=== PATIENT | female | born 1985 | race Caucasian/White ===

== ENCOUNTER 2016-06-01 11:50 | Emergency (ER) | payer OTHER ==
[~2016-06-01 11:50] MED LIST: AURALGAN AS; FLEXERIL PO; FLEXERIL10 MG PO; IBUPROFEN PO; KETOPROFEN PO; LEVAQUIN PO; MEDROL PO; MEDROL4 MG/DOSE- PO; NO MEDICATIONS; ORUDIS75 M1 DOB; PHENERGAN25 M1 PO; PRENATAL VITAMI1 TA3; VICODIN 5/500 T1 TAB PO; VOLTAREN75 MG PO; ZITHROMAX PO
== END 2016-06-01 13:00 | disposition home or self-care (01) ==
LOC: SED 11:50
DX: R22.0 Localized swelling, mass and lump, head (principal); Z98.51 Tubal ligation status
CPT/HCPCS: 99282

== ENCOUNTER 2016-06-06 19:03 | Emergency (ER) | payer OTHER ==
--- NOTE | ~2016-06-06 | CT57 ---
[facility]. [facility] A Service of [facility] & [facility] RADIOLOGY TEXT RESULTS PATIENT: LILA RUCKER LOCATION: SED : 81 UNIT #: [id number] AGE: [address]: Amol Ag MD SEX: F ORDER DR: [id number] [address] [address] [id number] MR#: [id number] Acc #: [id number] NAME: LILA RUCKER : 1985 SEX: F STUDY DATE/TIME: 06/06/2016 20:23 UNIT: SED ROOM: STUDY DESCRIPTION: CT Chest Wo Cont Attending Physician: Amol Ag M.D. Referring Physician: Jake Hidalgo M.D. Ordering Physician: Jake Hidalgo M.D. Primary Care Physician: Radha Hirsch M.D. MEDICAL IMAGING REPORT This report is preliminary unless electronic signature is present. EXAM Chest CT without HISTORY Sharp pain upper left side of breast all day. COMMENT Routine noncontrast chest CT is reviewed. This CT exam was performed with one or more of the following radiation dose reduction techniques: automatic exposure control, adjustment of mA and/or kV according to patient size, and iterative reconstruction. COMPARISON There is a previous chest x-ray from 2015 pending [facility]. FINDINGS There is no pleural effusion. There is no pneumothorax. There is no acute-appearing parenchymal infiltrates. There is mild exaggeration of thoracic kyphosis at lower thoracic spine, probably centered around T11 and I suspect there is some degenerative disc disease focally at T10-11. This should be a chronic finding. None contrast study is less sensitive for adenopathy. There is no obvious axillary adenopathy. Some residual thymic tissue is probably present. If there is concern for breast pathology, correlation with physical examination and mammogram on ultrasound would be recommended. No coronary artery calcifications suspected. Heart size normal. No pericardial effusion. IMPRESSION 1. 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 2. There is no evidence for pneumothorax, acute infiltrate, acute congestive failure, pleural effusion, or pericardial effusion. No STS. [facility] A Service of [facility] & [facility] RADIOLOGY TEXT RESULTS PATIENT: LILA RUCKER LOCATION: SED : [birth year] UNIT #: [id number] AGE: [address]: Amol Ag MD SEX: F ORDER DR: coronary artery calcifications are seen. No suspicious adenopathy is appreciated. Noncontrast study is relatively less sensitive for evaluation for hilar or mediastinal lymphadenopathy and does not evaluate for pulmonary embolism. 3. If there is clinical concern for breast pathology, correlation with physical examination and imaging such as mammography or ultrasound would be indicated. Dictated by... Vanna Márquez M.D. THIS IS AN ELECTRONICALLY VERIFIED REPORT Vanna Márquez M.D. at 06/07/2016 8:51 PM JAGDEEP/thomas TD: 06/07/2016 10:37 JOB #: [id number] MEDICAL IMAGING REPORT Page 1 of 1
--- NOTE | ~2016-06-06 | EKG ---
PATIENT: LILA RUCKER UNIT #: [id number] Ventricular Rate: 78 BPM Atrial Rate: 78 BPM P-R Interval: 152 ms QRS Duration: 74 ms Q-T Interval: 392 ms QTC Calculation(Bezet): 446 ms P [place]: 75 degrees Calculated R [place]: 87 degrees Calculated T [place]: 65 degrees Diagnosis Line: Normal sinus rhythm Diagnosis Line: Possible Left atrial enlargement Diagnosis Line: Borderline ECG Diagnosis Line: When compared with ECG of 12-JUL-2010 23:50, Diagnosis Line: No significant change was found Diagnosis Line: Confirmed by MARK TRACY MD ([id number]) on Diagnosis Line: 06/26/2016 7:10:33 AM INTERPRETING MD: CHIDI
[2016-06-06 19:39] LABS: BASOPHIL% 0.4 % (0-2.5); EOSINOPHIL# 0.1 X10e3 (0-0.7); EOSINOPHIL% 2.2 % (0.0-7.0); HEMATOCRIT 39.9 % (35.0-45.0); HEMOGLOBIN 13.7 gm/dL (12.0-16.0); LYMPHOCYTE# 2.3 X10e3 (1.0-3.5); LYMPHOCYTE% 41.2 % (17.0-45.0); MEAN CELL VOLUME 89.5 FL (83-96); MEAN CORPUSCULAR HEMOGLOBIN 30.7 PG (28-34); MEAN CORPUSCULAR HGB CONC 34.3 g/dL (30-36); MONOCYTE# 0.6 X10e3 (0-1.0); MONOCYTE% 10.2 % (3.0-12.0); NEUTROPHIL# 2.6 X10e3 (1.5-7.1); PLATELET COUNT 193 X10e3 (140-420); RED BLOOD COUNT 4.45 X10e (3.90-5.30); RED CELL DISTRIBUTION WIDTH 12.4 % (11.0-15.5); WHITE BLOOD COUNT 5.6 X10e3 (4.0-10.5)
[2016-06-06 19:41] LABS: DIFF IND NO
[2016-06-06 19:50] LABS: POC - CKMB <1.0 ng/mL (0.0-7.9)
[2016-06-06 19:51] LABS: POC - MYOGLOBIN 19.2 ng/mL (0.0-169.0); POC - TROPONIN <0.05 ng/mL (<=0.05)
[2016-06-06 19:57] LABS: ALBUMIN SERUM 4.1 g/dL (3.5-5.0); BILIRUBIN,TOTAL 0.2 mg/dL (0.2-2.0); CALCIUM SERUM 9.2 mg/dL (8.4-10.2); CREATININE SERUM 0.5 mg/dL (0.6-1.4); GLOM FILT RATE Estimated 127.2 mL/min (>60); POTASSIUM 3.5 mmol/L (3.5-5.1); PROTEIN TOTAL SERUM 6.7 g/dL (6.0-8.3)
== END 2016-06-06 22:59 | disposition home or self-care (01) ==
LOC: SED 19:03
PROVIDERS: Emergency Medicine
DX: M94.0 Chondrocostal junction syndrome [Tietze] (principal); F17.210 Nicotine dependence, cigarettes, uncomplicated
CPT/HCPCS: 71250; 80053; 82553; 83874; 84484; 84703; 85025; 93005; 96361; 96374; 99284; J1885

== ENCOUNTER 2016-07-07 19:49 | Emergency (ER) | payer OTHER | END 2016-07-07 20:25 | disposition home or self-care (01) | LOC: CFTX 19:49 | DX: K08.89 Other specified disorders of teeth and supporting structures (principal); H65.02 Acute serous otitis media, left ear; F17.210 Nicotine dependence, cigarettes, uncomplicated; Z88.8 Allergy status to other drugs, medicaments and biological substances | CPT/HCPCS: 99282; 99283 ==

== ENCOUNTER → 2016-07-16 | Outpatient (CLI) | payer OTHER ==
[~2016-07-16] MED LIST changes: +KEFLEX
--- NOTE | ~2016-07-16 | CT2 ---
[facility] A Service of [facility] & [facility] RADIOLOGY TEXT RESULTS PATIENT: LILA RUCKER LOCATION: CCAT : [birth year] UNIT #: [id number] AGE: [address]: Lissette Osman MD SEX: F ORDER DR: [id number] [facility] [address] [place], [place] [address] [id number] O MR#: [id number] Acc #: [id number] NAME: LILA RUCKER. : 1985 SEX: F STUDY DATE/TIME: 07/16/2016 15:12 UNIT: CCAT ROOM: STUDY DESCRIPTION: CT Abd and Pelv W Cont Attending Physician: Lissette Osman M.D., Ph.D. Referring Physician: Lissette Osman M.D., Ph.D. Ordering Physician: Lissette Osman M.D., Ph.D. Primary Care Physician: Radha Hirsch M.D. MEDICAL IMAGING REPORT This report is preliminary unless electronic signature is present EXAM CT of the abdomen and pelvis with IV contrast media HISTORY 18-pound unexplained weight loss since June 24, nausea, anorexia and lymphadenopathy. Date of examination is 07/16/2016. COMPARISON 02/25/2011 TECHNIQUE Axial imaging of the abdomen and pelvis was obtained with IV contrast media. This CT exam was performed with one or more of the following radiation dose reduction techniques: Automatic exposure control, adjustment of mA and/or kV according to patient size, and iterative reconstruction. FINDINGS Lung bases in this patient are clear. Liver and spleen are normal. The gallbladder is contracted. The pancreas is normal. The adrenal glands are normal and both the right and left kidney are normal. No dilated or thickened loops of bowel are seen in the upper abdomen. There is no significant retroperitoneal lymphadenopathy. The appendix has a normal appearance. There is no evidence of mesenteric or pelvic lymphadenopathy. There are incidental bilateral follicular cysts; the largest is in the right ovary measuring 2.1 cm. There is trace fluid in the cul-de-sac, which can be seen physiologically. Uterus appears unremarkable. No significant lymphadenopathy is identified in the inguinal regions. CONCLUSION 1. Normal CT of the abdomen and pelvis. [facility] A Service of [facility] & [facility] RADIOLOGY TEXT RESULTS PATIENT: LILA RUCKER LOCATION: [facility] : [birth year] UNIT #: [id number] AGE: [address]: Lissette Osman MD SEX: F ORDER DR: Dictated by... Truong Ryder M.D. THIS IS AN ELECTRONICALLY VERIFIED REPORT Truong Ryder M.D. at 07/18/2016 4:41 PM SANDRA/[email or web address] TD: 07/16/2016 20:28 JOB #: [id number] MEDICAL IMAGING REPORT Page 1 of 1 COPY
== END | disposition home or self-care (01) ==
LOC: CCAT 14:26
DX: R59.9 Enlarged lymph nodes, unspecified (principal)
CPT/HCPCS: 74177; Q9967

== ENCOUNTER 2016-08-26 14:45 | Emergency (ER) | payer OTHER ==
[~2016-08-26 14:45] MED LIST changes: -KEFLEX
[2016-08-26] MEDS ORDERED: NO MEDICATIONS (15:10)
[2016-08-26] MEDS ORDERED: KEFLEX (15:11)
[2016-08-26 17:05] LABS: BASOPHIL% 0.5 % (0-2.5); EOSINOPHIL# 0.1 X10e3 (0-0.7); EOSINOPHIL% 0.8 % (0.0-7.0); HEMATOCRIT 43.4 % (35.0-45.0); HEMOGLOBIN 14.9 gm/dL (12.0-16.0); LYMPHOCYTE# 2.3 X10e3 (1.0-3.5); LYMPHOCYTE% 32.9 % (17.0-45.0); MEAN CELL VOLUME 89.3 FL (83-96); MEAN CORPUSCULAR HEMOGLOBIN 30.6 PG (28-34); MEAN CORPUSCULAR HGB CONC 34.3 g/dL (30-36); MEAN PLATELET VOLUME 9.4 FL (6.5-11.5); MONOCYTE# 0.4 X10e3 (0-1.0); MONOCYTE% 5.9 % (3.0-12.0); NEUTROPHIL# 4.2 X10e3 (1.5-7.1); NEUTROPHIL% 59.9 % (40-75); PLATELET COUNT 210 X10e3 (140-420); RED BLOOD COUNT 4.86 X10e (3.90-5.30); RED CELL DISTRIBUTION WIDTH 12.4 % (11.0-15.5)
[2016-08-26 17:06] LABS: DIFF IND NO
[2016-08-26 17:11] LABS: URINE SOURCE CLEAN CATCH
[2016-08-26 17:27] LABS: ALBUMIN SERUM 4.6 g/dL (3.5-5.0); BILIRUBIN,TOTAL 0.5 mg/dL (0.2-2.0); CALCIUM SERUM 9.7 mg/dL (8.4-10.2); CREATININE SERUM 0.6 mg/dL (0.6-1.4); GLOM FILT RATE Estimated 119.8 mL/min (>60); PROTEIN TOTAL SERUM 7.9 g/dL (6.0-8.3)
[2016-08-26 17:30] LABS: URINE APPEARANCE CLEAR; URINE BILIRUBIN NEG (NEG); URINE BLOOD TRACE-INTACT (NEG); URINE COLOR YELLOW; URINE GLUCOSE NEG (NORM); URINE KETONE NEG (NEG); URINE LEUKOCYTE ESTERASE NEG (NEG); URINE NITRATE NEG (NEG); URINE PH 5.5 (5-8); URINE PROTEIN NEG (NEG); URINE SPECIFIC GRAVITY <=1.005 (1.003-1.035); URINE UROBILINOGEN 0.2 MG/DL (NORM)
[2016-08-26 17:32] LABS: MICRO INDICATED? YES
[2016-08-26 17:50] LABS: URINE BACTERIA NEG (NEG); URINE RBC 0-2 /[HPF] (0-2); URINE SQUAMOUS EPITHELIAL CELL OCCAS /[HPF]; URINE WBC 0-2 /[HPF] (0-5)
== END 2016-08-26 18:00 | disposition home or self-care (01) ==
LOC: SED 14:45
PROVIDERS: Emergency Medicine; Physician Assistant
DX: N93.8 Other specified abnormal uterine and vaginal bleeding (principal)
CPT/HCPCS: 36415; 80053; 81003; 84703; 85025; 99283